=== PATIENT | female | born 1980 | race American Indian/Alaskan Native ===

== ENCOUNTER 2016-12-30 21:31 | Emergency (ER) | payer MEDICAID | END 2016-12-31 00:14 | disposition left against medical advice (07) | LOC: ED 21:31 | DX: M25.511 Pain in right shoulder (principal); W19.XXXA Unspecified fall, initial encounter; Y93.9 Activity, unspecified; Y92.89 Other specified places as the place of occurrence of the external cause; Y99.9 Unspecified external cause status; Z53.21 Procedure and treatment not carried out due to patient leaving prior to being seen by health care provider ==

== ENCOUNTER 2017-01-28 16:32 | Emergency (ER) | payer MEDICAID ==
--- NOTE | 2017-01-28 18:02 | XRay Report ---
FINAL REPORT EXAM: XR ANKLE 3 LT HISTORY: fall a week ago and left ankle pain TECHNIQUE: AP, lateral, and oblique views of the left ankle PRIORS: None. FINDINGS: There is no evidence for acute fracture or dislocation. No soft tissue swelling or radiopaque foreign bodies are seen. The ankle mortise is intact. Bony mineralization is normal and joint spaces are maintained. Spurring off the plantar and posterior aspects of the calcaneus is seen. There is also spurring off the posterior talus. IMPRESSION: No acute soft tissue or bony abnormality noted.
--- NOTE | 2017-01-28 21:55 | Emergency Department Report ---
ED Lower Extremity HPI - General Chief Complaint: Extremity Injury, Lower Stated Complaint: LT FOOT/ANKLE SWOLLEN Time Seen by Provider: 01/28/17 21:54 Source: patient Mode of arrival: Ambulatory Limitations: No Limitations - History of Present Illness Initial Comments: 36-year-old female presents to emergency room with complaint of left ankle pain 3 days. Patient does not recall any injury to her left ankle. Complains of pain upon walking. Noticed some swelling to her left ankle area. Denies any insect bites. Denies any history of gout. Patient stated she called her primary care doctor and suggested from the emergency room for further evaluation. MD Complaint: ankle injury (left) -: Gradual (3 days) Injury: Ankle: Left (unknown , may have twisted it) Type of Injury: inversion (possible) Place: home Severity: mild Severity scale (0 -10): 2 Improves With: nothing Worsens With: movement Other Symptoms: other (unknown) Associated Symptoms: swelling Treatments Prior to Arrival: NSAIDS - Related Data Home Medications Medication Instructions Recorded Confirmed Last Taken Hydrochlorothiazide [Hctz] 25 mg PO QDAY 01/03/15 01/03/15 01/03/15 Lisinopril [Zestril] 40 mg PO QDAY 01/03/15 01/03/15 01/03/15 glyBURIDE [Diabeta] 5 mg PO DAILY 01/03/15 01/03/15 01/03/15 Previous Rx's Medication Instructions Recorded Last Taken Type Oxycodone HCl/Acetaminophen 1 each PO Q6HR PRN #10 tablet 01/04/15 Unknown Rx [Percocet 10-325 mg] Acetaminophen/Codeine [Tylenol 1 tab PO Q4HR PRN #12 tablet 01/28/17 Unknown Rx /Codeine # 3 tab] Diclofenac Sodium 75 mg PO BID #20 tablet. 01/28/17 Unknown Rx Allergies Allergy/AdvReac Type Severity Reaction Status Date / Time No Known Allergies Allergy Verified 01/03/15 20:17 ED Review of Systems ROS: Stated complaint: LT FOOT/ANKLE SWOLLEN Other details as noted in HPI Comment: All other systems reviewed and negative Constitutional: denies: chills, fever Eyes: denies: eye pain, eye discharge, vision change ENT: denies: ear pain, throat pain Respiratory: denies: cough, shortness of breath, wheezing Cardiovascular: denies: chest pain, palpitations Endocrine: no symptoms reported Gastrointestinal: denies: abdominal pain, nausea, diarrhea Genitourinary: denies: urgency, dysuria, discharge Musculoskeletal: other (left foot and ankle pain). denies: back pain, joint swelling, arthralgia Skin: denies: rash, lesions Neurological: denies: headache, weakness, paresthesias Psychiatric: denies: anxiety, depression Hematological/Lymphatic: denies: easy bleeding, easy bruising ED Past Medical Hx - Past Medical History Previous Medical History?: Yes Hx Hypertension: Yes Hx Diabetes: Yes - Surgical History Past Surgical History?: Yes Additional Surgical History: c/s x 1. T.L - Social History Smoking Status: Former Smoker Substance Use Type: Alcohol, Prescribed - Medications Home Medications: Home Medications Medication Instructions Recorded Confirmed Last Taken Type Hydrochlorothiazide [Hctz] 25 mg PO QDAY 01/03/15 01/03/15 01/03/15 History Lisinopril [Zestril] 40 mg PO QDAY 01/03/15 01/03/15 01/03/15 History glyBURIDE [Diabeta] 5 mg PO DAILY 01/03/15 01/03/15 01/03/15 History Oxycodone HCl/Acetaminophen 1 each PO Q6HR PRN #10 tablet 01/04/15 Unknown Rx [Percocet 10-325 mg] Acetaminophen/Codeine [Tylenol 1 tab PO Q4HR PRN #12 tablet 01/28/17 Unknown Rx /Codeine # 3 tab] Diclofenac Sodium 75 mg PO BID #20 tablet. 01/28/17 Unknown Rx ED Physical Exam - General Limitations: No Limitations General appearance: alert, in no apparent distress - Head Head exam: Present: atraumatic, normocephalic - Eye Eye exam: Present: normal appearance - ENT ENT exam: Present: mucous membranes moist - Neck Neck exam: Present: normal inspection - Respiratory Respiratory exam: Present: normal lung sounds bilaterally. Absent: respiratory distress - Cardiovascular Cardiovascular Exam: Present: regular rate, normal rhythm. Absent: systolic murmur, diastolic murmur, rubs, gallop - GI/Abdominal GI/Abdominal exam: Present: soft, normal bowel sounds - Extremities Exam Extremities exam: Present: normal inspection, tenderness (lateral left ankle), normal capillary refill. Absent: pedal edema, joint swelling, calf tenderness - Expanded Lower Extremity Exam Left Hip exam: Present: normal inspection, full ROM. Absent: tenderness, swelling Upper Leg exam: Present: normal inspection, full ROM. Absent: tenderness, swelling Knee exam: Present: normal inspection, full ROM. Absent: tenderness, swelling Lower Leg exam: Present: normal inspection, full ROM Ankle exam: Present: tenderness, swelling (left lateral ankle) Foot/Toe exam: Present: tenderness (dorsal left foot) Neuro vascular tendon exam: Present: no vascular compromise, pulse deficit. Absent: abnormal cap refill, motor deficit, sensory deficit, tendon deficit Gait: Positive: antalgic - Back Exam Back exam: Present: normal inspection - Neurological Exam Neurological exam: Present: alert, oriented X3 - Psychiatric Psychiatric exam: Present: normal affect, normal mood - Skin Skin exam: Present: warm, dry, intact, normal color. Absent: rash ED Course Vital Signs 01/28/17 01/28/17 16:43 22:13 Temperature 98.7 F 97.8 F Pulse Rate 90 82 Respiratory 18 18 Rate Blood Pressure 129/88 Blood Pressure 138/87 [Right] O2 Sat by Pulse 100 97 Oximetry - Orthopedic Splinting/Casting Injury #1 Side: left Lower Extremity Injury Location: ankle Lower Extremity Immobilizer: Eron wrap Other Orthopedic Equipment: crutches ED Lower Extremity MDM - Radiology Data Radiology results: report reviewed (no acute fx) Critical Care Time: No Critical care attestation.: If time is entered above; I have spent that time in minutes in the direct care of this critically ill patient, excluding procedure time. ED Disposition Clinical Impression: Tendonitis of ankle or foot Disposition: DISCHARGED TO HOME OR SELFCARE Is pt being admited?: No Does the pt Need Aspirin: No Condition: Stable Instructions: Ankle Exercises (GEN), Tendinitis (ED) Prescriptions: Acetaminophen/Codeine [Tylenol /Codeine # 3 tab] 1 tab PO Q4HR PRN #12 tablet PRN Reason: Pain Diclofenac Sodium 75 mg PO BID #20 tablet.dr Referrals: MEENU KUMAR MD [Staff Physician] - 3-5 Days
[2017-01-28] MEDS ORDERED: TORADOL IM ONE (22:00)
[2017-01-28] MEDS ORDERED: NORCO 10/325 PO ONE (22:00)
[2017-01-28 22:14] VITALS: BP 138/87
== END 2017-01-28 22:48 | disposition home or self-care (01) ==
LOC: ED 16:32
DX: M77.8 Other enthesopathies, not elsewhere classified (principal); M25.572 Pain in left ankle and joints of left foot; I10 Essential (primary) hypertension; E11.9 Type 2 diabetes mellitus without complications; Z87.891 Personal history of nicotine dependence
CPT/HCPCS: 73610; 96372; 99284; J1885

== ENCOUNTER 2017-05-26 19:50 | Emergency (ER) | payer SELFPAY ==
--- NOTE | 2017-05-26 21:08 | Cat Scan Report ---
FINAL REPORT EXAM: CT HEAD/BRAIN WO CON HISTORY: head injury TECHNIQUE: Noncontrast serial axial images from skull base to vertex PRIORS: None. FINDINGS: There is no mass effect or midline shift. There are no abnormal intra or extra-axial fluid collections. Cortical sulci and lateral ventricles are within normal limits for size and configuration. Basilar cisterns are patent. No acute intracranial hemorrhage is identified. Visualized paranasal sinuses and mastoid air cells are well aerated. No acute osseous abnormality is identified. IMPRESSION: 1. No acute intracranial hemorrhage is identified.
--- NOTE | 2017-05-26 21:14 | Cat Scan Report ---
FINAL REPORT EXAM: CT CERVICAL SPINE WO CON HISTORY: head injury TECHNIQUE: Noncontrast serial axial images through the cervical spine with coronal and sagittal reconstruction. PRIORS: None. FINDINGS: No gross abnormality is seen in the visualized portion of the brain. Mastoid air cells are well aerated. Prevertebral soft tissues appear within normal limits. Visualized portion of the lung apices are clear. The patient's head is slightly rotated to the right side. No acute fracture or anterolisthesis is identified. IMPRESSION: 1. No acute fracture or anterolisthesis is identified.
[2017-05-27] MEDS ORDERED: TORADOL IM ONE (00:07)
[2017-05-27] MEDS ORDERED: TYLENOL #3 PO ONE (00:07)
--- NOTE | 2017-05-27 00:12 | Emergency Department Report ---
ED General Adult HPI - General Chief complaint: Head Injury Stated complaint: HEADACHE/CHEST PAIN Time Seen by Provider: 05/26/17 23:58 Source: patient, RN notes reviewed Mode of arrival: Ambulatory Limitations: No Limitations - History of Present Illness Initial comments: This is a 37-year-old female. She is previously unknown to me. Her primary care doctor is at [place]. Past medical history includes obesity, diabetes and hypertension. Patient reports that at 8:00 AM on the preceding morning, her ceiling fell on top of her chest and head. She complains of headache, neck pain and chest pain. Patient also reports intermittent chest discomfort the past few days. There is no nausea, vomiting or diaphoresis. There is no leg pain or leg swelling. The chest pain does not radiate to the back, arms or neck. Patient is not , does not take oral contraceptives, has not had surgery in the past month. No recent periods of travel. The pain is achy, and increases with palpation or range of motion. It decreases with rest. -: Gradual Location: head, neck, chest Radiation: non-radiation Severity scale (0 -10): 7 Quality: aching Consistency: intermittent Improves with: rest Worsens with: movement Associated Symptoms: chest pain, headaches - Related Data Home Medications Medication Instructions Recorded Confirmed Last Taken Lisinopril [Zestril] 40 mg PO QDAY 01/03/15 05/26/17 01/03/15 glyBURIDE [Diabeta] 5 mg PO DAILY 01/03/15 05/26/17 01/03/15 Ibuprofen [Motrin 200 MG tab] 200 mg PO PRN PRN 05/26/17 05/26/17 Unknown LORazepam [Ativan] 0.5 mg PO PRN PRN 05/26/17 05/26/17 Unknown amLODIPine [Norvasc] 10 mg PO QDAY 05/26/17 05/26/17 Unknown Previous Rx's Medication Instructions Recorded Last Taken Type Ibuprofen [Motrin] 600 mg PO Q8H PRN #30 tablet 05/27/17 Unknown Rx Allergies Allergy/AdvReac Type Severity Reaction Status Date / Time No Known Allergies Allergy Verified 01/03/15 20:17 ED Review of Systems ROS: Stated complaint: HEADACHE/CHEST PAIN Other details as noted in HPI Constitutional: denies: fever, malaise Eyes: denies: vision change ENT: denies: epistaxis Respiratory: denies: cough Cardiovascular: chest pain Gastrointestinal: denies: abdominal pain Genitourinary: denies: dysuria Musculoskeletal: arthralgia, myalgia Skin: lesions Neurological: headache. denies: numbness, paresthesias, confusion ED Past Medical Hx - Past Medical History Previous Medical History?: Yes Hx Hypertension: Yes Hx Diabetes: Yes - Surgical History Past Surgical History?: Yes Additional Surgical History: c/s x 1. T.L - Social History Smoking Status: Current Every Day Smoker Substance Use Type: None - Medications Home Medications: Home Medications Medication Instructions Recorded Confirmed Last Taken Type Lisinopril [Zestril] 40 mg PO QDAY 01/03/15 05/26/17 01/03/15 History glyBURIDE [Diabeta] 5 mg PO DAILY 01/03/15 05/26/17 01/03/15 History Ibuprofen [Motrin 200 MG tab] 200 mg PO PRN PRN 05/26/17 05/26/17 Unknown History LORazepam [Ativan] 0.5 mg PO PRN PRN 05/26/17 05/26/17 Unknown History amLODIPine [Norvasc] 10 mg PO QDAY 05/26/17 05/26/17 Unknown History Ibuprofen [Motrin] 600 mg PO Q8H PRN #30 tablet 05/27/17 Unknown Rx ED Physical Exam - General Limitations: No Limitations General appearance: alert, in no apparent distress - Head Head exam: Present: atraumatic, normocephalic - Eye Eye exam: Present: normal appearance, EOMI. Absent: nystagmus - ENT ENT exam: Present: normal exam, normal orophraynx, mucous membranes moist, normal external ear exam - Neck Neck exam: Present: normal inspection, tenderness, full ROM, other (there is no midline cervical spine tenderness. There is reproducible paracervical tenderness) - Respiratory Respiratory exam: Present: normal lung sounds bilaterally, chest wall tenderness (there is reproducible chest wall tenderness. During the chest and breast examination, I am escorted by nurse Itzel Esqueda). Absent: respiratory distress, wheezes, rales, rhonchi, stridor - Cardiovascular Cardiovascular Exam: Present: regular rate, normal rhythm, normal heart sounds. Absent: bradycardia, tachycardia, irregular rhythm, systolic murmur, diastolic murmur, rubs, gallop - GI/Abdominal GI/Abdominal exam: Present: soft, normal bowel sounds. Absent: distended, tenderness, guarding, rebound, rigid, pulsatile mass - Extremities Exam Extremities exam: Present: normal inspection, full ROM, normal capillary refill. Absent: tenderness, pedal edema, joint swelling, calf tenderness - Back Exam Back exam: Present: normal inspection, full ROM. Absent: tenderness, CVA tenderness (R), CVA tenderness (L), muscle spasm, paraspinal tenderness, vertebral tenderness - Neurological Exam Neurological exam: Present: alert, oriented X3, normal gait, other (Extraocular movements intact. Tongue midline. No facial droop. Facial sensation intact to light touch in the V1, V2, V3 distribution bilaterally. 5 and 5 strength in 4 extremities.. Sensation is intact to light touch in 4 extremities.). Absent : motor sensory deficit - Psychiatric Psychiatric exam: Present: anxious - Skin Skin exam: Present: warm, dry, intact, normal color. Absent: rash ED Course Vital Signs 05/26/17 05/26/17 05/27/17 20:07 21:18 02:05 Temperature 99.1 F Pulse Rate 85 83 72 Respiratory 16 28 H 17 Rate Blood Pressure 150/101 Blood Pressure 136/96 [Left] O2 Sat by Pulse 100 99 99 Oximetry ED Medical Decision Making - Lab Data Result diagrams: 05/27/17 00:18 05/27/17 00:18 Vital Signs 05/26/17 05/26/17 20:07 21:18 Temperature 99.1 F Pulse Rate 85 83 Respiratory 16 28 H Rate Blood Pressure 150/101 O2 Sat by Pulse 100 99 Oximetry Lab Results 05/27/17 05/27/17 05/27/17 Range/Units 00:18 00:18 00:18 WBC 12.5 H (4.5-11.0) K/mm3 RBC 4.10 (3.65-5.03) M/mm3 Hgb 13.5 (10.1-14.3) gm/dl Hct 40.0 (30.3-42.9) % MCV 98 H (79-97) fl MCH 33 H (28-32) pg MCHC 34 (30-34) % RDW 12.9 L (13.2-15.2) % Plt Count 226 (140-440) K/mm3 Sodium 139 (137-145) mmol/L Potassium 3.6 (3.6-5.0) mmol/L Chloride 100.8 (98-107) mmol/L Carbon Dioxide 18 L (22-30) mmol/L Anion Gap 24 mmol/L BUN 5 L (7-17) mg/dL Creatinine 0.4 L (0.7-1.2) mg/dL Estimated GFR > 60 ml/min BUN/Creatinine Ratio 12.50 % Glucose 163 H (65-100) mg/dL Calcium 9.3 (8.4-10.2) mg/dL Total Creatine Kinase 138 H (30-135) units/L Troponin T < 0.010 (0.00-0.029) ng/mL HCG, Quant < 2 (0-4) mIU/mL - EKG Data -: EKG Interpreted by Me EKG shows normal: sinus rhythm - EKG Data 05/27/17 01:36 EKG #1 demonstrates sinus, 73 bpm, normal intervals, axis, Q- wave in the anteroseptal leads, not morphologically consistent with STEMI, appears unchanged when compared to prior from 2011. EKG #2 demonstrates sinus, 73 bpm, normal intervals, normal axis, not morphologically consistent with STEMI, appears unchanged from prior. - Radiology Data Radiology results: report reviewed, image reviewed interpreted by me: X-ray of the chest is negative for acute disease. Noncontrast CT scan of the brain and cervical spine are negative for acute disease. - Medical Decision Making Differential diagnosis: Intracranial injury, cervical spine injury, concussion, costochondritis, chest wall contusion, blunt cardiac injury, pneumonia, acute coronary syndrome, pneumothorax Assessment and plan: 37-year-old female with headache, neck pain, chest wall pain after blunt trauma. Low risk by TITI score, low risk by heart score, no pulmonary embolus or DVT risk factors, low risk by well's criteria, perc negative. Troponin negative 1, as per the [employer] control policy, myocardial infarction may be excluded with 1 set of cardiac enzymes if symptoms haven't present for greater than 8 hours. The patient reports nonspecific chest tightness for the past few days, but her main complaint is headache, neck pain, and chest wall pain after blunt trauma. She is a GCS of 15, with an NIH score of 0, and has full range of motion to her bilateral upper and lower extremities. She is clinically sober at this time and she walks with a steady gait. She is instructed that she may have a component of concussion. She felt improved after pain medication. She is able to follow up with outpatient primary care doctor. Given unchanged EKG 2, negative troponin, blunt cardiac injury unlikely. X-ray chest not consistent with pneumonia or pneumothorax. Critical care attestation.: If time is entered above; I have spent that time in minutes in the direct care of this critically ill patient, excluding procedure time. ED Disposition Clinical Impression: Chest wall pain, Headache Disposition: DC-01 TO HOME OR SELFCARE Is pt being admited?: No Does the pt Need Aspirin: No Condition: Stable Instructions: Costochondritis (ED), Minor Head Injury (ED) Additional Instructions: Pain typically gets worse before it gets better after blunt trauma. Take the pain medication as directed. Follow up with a primary care doctor within the next 7-10 days. Return to the ER right away with new pain, worsened pain, migration of pain, fevers, chills, confusion, shortness of breath, intractable nausea or vomiting, inability to tolerate liquid feeds. Patient may have a concussion. Symptoms of concussion include dizziness, lightheadedness, forgetfulness, fogginess. Symptoms of concussion may last for days to weeks to months. Take the pain medication as directed. Prescriptions: Ibuprofen [Motrin] 600 mg PO Q8H PRN #30 tablet PRN Reason: Pain Referrals: PRIMARY CAREMD [Primary Care Provider] - 3-5 Days CRISTHIAN CRAWFORD MD [Staff Physician] - 3-5 Days Forms: Work/School Release Form(ED)
[2017-05-27 00:35] LABS: Hemoglobin 13.5 gm/dl (10.1-14.3); Mean Corpuscular HGB Conc 34 % (30-34); Mean Corpuscular Hemoglobin 33 pg (28-32); Mean Corpuscular Volume 98 fl (79-97); Platelet Count 226 K/mm3 (140-440); Red Cell Distribution Width 12.9 % (13.2-15.2); White Blood Count 12.5 K/mm3 (4.5-11.0)
[2017-05-27 01:12] LABS: Anion Gap 24 mmol/L; Blood Urea Nitrogen 5 mg/dL (7-17); Calcium 9.3 mg/dL (8.4-10.2); Carbon Dioxide 18 mmol/L (22-30); Chloride 100.8 mmol/L (98-107); Creatine Kinase 138 units/L (30-135); Glucose 163 mg/dL (65-100); Potassium 3.6 mmol/L (3.6-5.0); Sodium 139 mmol/L (137-145)
[2017-05-27 02:18] VITALS: BP 136/96
--- NOTE | 2017-05-27 07:35 | XRay Report ---
ROUTINE CHEST, TWO VIEWS: HISTORY: Chest wall pain. The trachea, heart, mediastinal contour, lung rea and bony thorax are unremarkable. IMPRESSION: Unremarkable chest x-ray.
== END 2017-05-27 02:05 | disposition home or self-care (01) ==
LOC: ED 19:50
DX: R07.89 Other chest pain (principal); R51 Headache; M54.2 Cervicalgia; I10 Essential (primary) hypertension; E11.9 Type 2 diabetes mellitus without complications; F17.210 Nicotine dependence, cigarettes, uncomplicated
CPT/HCPCS: 36415; 70450; 71020; 72125; 80048; 82550; 84484; 84702; 85027; 93005; 93010; 96372; 99284; J1885